=== PATIENT | male | born 1965 | race Caucasian/White ===

== ENCOUNTER 2025-06-21 09:14 | Day surgery (SDC) | payer OTHER ==
[~2025-06-21] VITALS: Ht 180.3 cm; Wt 88.1 kg
[~2025-06-21 09:14] MED LIST: DULO60CA35 PO; GABA-1171 PO; ROSU20TA86 PO
[2025-06-21] MEDS ORDERED: LIDOCAINE 2% 100 MG/5 ML SDV (FOR ANES.) As Ordered ONE (11:07)
[2025-06-21 11:33] VITALS: TEMP 97.9
[2025-06-21 12:07] VITALS: BP 126/82; O2SAT 100
== END 2025-06-21 12:08 | disposition home or self-care (01) ==
LOC: M OPP 09:14
PROVIDERS: ATTEND Surgery
DX: Z12.11 Encounter for screening for malignant neoplasm of colon (principal); R19.5 Other fecal abnormalities; D12.6 Benign neoplasm of colon, unspecified; K64.2 Third degree hemorrhoids; Z79.899 Other long term (current) drug therapy